=== PATIENT | male | born 1990 | race Two or more races ===

== ENCOUNTER 2020-03-25 06:40 | Day surgery (SDC) | payer OTHER ==
[~2020-03-25] VITALS: Ht 175.3 cm; Wt 73.9 kg
[2020-03-25] VITALS (8 sets, daily range): BP systolic 111–127; BP diastolic 63–74
--- NOTE | 2020-03-25 06:37 | Anethesia Preoperative Eval ---
Anesthesia Pre-op PMH/ROS General Date of Evaluation: Mar 25, 2020 Time of Evaluation: 06:36 Anesthesiologist: tracy ASA Score: ASA 3 Mallampati Score Class I : Soft palate, uvula, fauces, pillars visible Class II: Soft palate, uvula, fauces visible Class III: Soft palate, base of uvula visible Class IV: Only hard plate visible Mallampati Classification: Class II Surgeon: wes Diagnosis: dysphagia Surgical Procedure: egd Anesthesia History: none Social History: smoking Family History: no anesthesia problems Allergies: Coded Allergies: Shrimp (Verified Allergy, Intermediate, RASH, HIVES, 03/25/20) Medications: see eMAR Patient NPO?: Yes Past Medical History Pulmonary: Reports: asthma, other - bronchitis Gastrointestinal/Genitourinary: Reports: other - dysphagia Neurologic/Psychiatric: Reports: depression/anxiety Anesthesia Pre-op Phys. Exam Physician Exam Last Vital Signs Date Time Temp Pulse Resp B/P (MAP) Pulse Ox O2 Delivery O2 Flow Rate FiO2 03/25/20 07:16 Room Air 03/25/20 07:14 97.9 70 18 127/74 98 Constitutional: NAD Neurologic: CN 2-12 intact Cardiovascular: RRR Respiratory: CTA Gastrointestinal: S/NT/ND Airway Exam Mallampati Score: Class II MO: full Neck: flexible TMD: 2fb ROM: full Teeth: intact Anesthesia Pre-op A/P Labs Microbiology Date/Time Source Procedure Growth Status 03/22/20 13:00 Nasopharynx SARS-CoV-2 RdRp Gene Assay - Final Complete Risk Assessment & Plan Assessment: asa3 Plan: mac Status Change Before Surgery: No Pre-Antibiotics Drug: Sadie Ramirez MD Mar 25, 2020 06:37
[2020-03-25] MEDS ORDERED: ALBUTEROL SULF8.5 G1 INH (07:21)
[2020-03-25] MEDS ORDERED: QVAR7.3 GM INH (07:21)
[2020-03-25] MEDS ORDERED: BUSPIRONE HCL5 M1 ORAL (07:22)
--- NOTE | 2020-03-25 07:53 | Short Stay Surgery H&P ---
History of Present Illness History of Present Illness Chief Complaint see H&P attached HPI Ronald Patel is a 30 year old male who was admitted on for Dysphagia Patient History Allergies: Coded Allergies: Shrimp (Verified Allergy, Intermediate, RASH, HIVES, 03/25/20) Medication History Scheduled Albuterol Sulfate* (Albuterol Sulfate Hfa*), 2 PUFF INH NEEDED, (Reported) Beclomethasone Dipropionate 40MCG Oral Inh (Qvar 40*), 1 PUFF INH TWICE A DAY, (Reported) Buspirone Hcl* (Buspirone Hcl*), Unknown Dose ORAL TWICE A DAY, (Reported) Physical Exam Vital Signs Last Vital Signs Date Time Temp Pulse Resp B/P (MAP) Pulse Ox O2 Delivery O2 Flow Rate FiO2 03/25/20 07:16 Room Air 03/25/20 07:14 97.9 70 18 127/74 98 Plan Attestation Are the patient's medical conditions optimized for surgery? Pasquale Gomez MD Mar 25, 2020 07:53
--- NOTE | 2020-03-25 07:54 | Pre-Procedure Note/Attestation ---
Pre-Procedure Note/Attestation Complete Prior to Procedure Planned Procedure: not applicable Procedure Narrative: EGD Indications for Procedure Pre-Operative Diagnosis: Dysphagia / Globus Attestation I attest that I discussed the nature of the procedure; its benefits; risks and complications; and alternatives (and the risks and benefits of such alternatives), prior to the procedure, with the patient (or the patient's legal outbound telemarketing representative). I attest that, if there was a reasonable possibility of needing a blood tr ansfusion, the patient (or the patient's legal outbound telemarketing representative) was given the [facility] standardized written summary, pursuant to the [place] Blood Safety Act ([place] Health and Safety Code # 1645, as amended). I attest that I re-evaluated the patient just prior to the surgery and that there has been no change in the patient's H&P, except as documented below: Pasquale Gomez MD Mar 25, 2020 07:54
[2020-03-25] MEDS ORDERED: Lidocaine 1% MPF 10mg/ml 5ml ONE (08:00)
[2020-03-25] MEDS ORDERED: LR 1000ml ONE (08:00)
[2020-03-25] MEDS ORDERED: DiphenhydrAMINE 50mg/ml Inj IVP PRN (08:15)
[2020-03-25] MEDS ORDERED: Midazolam 2mg/2ml Inj IVP PRN (08:15)
[2020-03-25] MEDS ORDERED: LR 1000ml 1,000 ML IVLG SCH (08:15)
[2020-03-25] MEDS ORDERED: fentaNYL 100 mcg/2 mL IV PRN (08:15)
[2020-03-25] MEDS ORDERED: Atropine Inj 1mg/10ml Syr IVP PRN (08:15)
--- NOTE | 2020-03-25 08:48 | Endoscopy Procedure Note ---
Endoscopy Procedure Note General Indication for Procedure: dysphagia, globus Procedures Performed: EGD Operative Findings/Diagnosis: nl, rnd bx Specimen: yes Pt Tolerated Procedure Well: Yes Estimated Blood Loss: none Anesthesia Anesthesiologist: Gonzalo Escobar Anesthesia: MAC Medications Medication Given: see anesthesia record Inserted Devices Implant(s) used?: No GI Core Measures 50 yrs or older w/o bx or poly: Not Applicable 10yrs. F/U recommended: Not Applicable Pasquale Gomez MD Mar 25, 2020 08:48
--- NOTE | 2020-03-25 08:48 | Brief Operative Note ---
Immediate Post Operative Note Operative Note Chief Complaint: dysphagia Pre-op Diagnosis: Dysphagia / Globus Procedure: esophagogastroduodenoscopy bx Post-op Diagnosis: nl Specimen: yes Complications: none Fluids: given Implant(s) used?: No Pasquale Gomez MD Mar 25, 2020 08:48
--- NOTE | 2020-03-25 09:22 | Immediate Post-Op Evaluation ---
Immediate Post-Op Evalulation Immediate Post-Op Evalulation Procedure: egd w/bx Date of Evaluation: Mar 25, 2020 Time of Evaluation: 08:31 IV Fluids: 400ml lr Blood Products: none Estimated Blood Loss: negligible Blood Pressure Systolic: 113 Blood Pressure Diastolic: 63 Pulse Rate: 61 Respiratory Rate: 18 O2 Sat by Pulse Oximetry: 99 Temperature (Fahrenheit): 97.0 Pain Score (1-10): 0 Nausea: No Vomiting: No Complications 0 Patient Status: awake, reacts, patent Hydration Status: adequate Drug: Sadie Ramirez MD Mar 25, 2020 09:22
--- NOTE | 2020-03-25 09:23 | 48 Hour Post Anesthesia Eval ---
Post Anesthesia Evaluation Procedure: egd w/bx Date of Evaluation: Mar 25, 2020 Time of Evaluation: 08:33 Blood Pressure Systolic: 111 0: 68 Pulse Rate: 60 Respiratory Rate: 18 Temperature (Fahrenheit): 97.0 O2 Sat by Pulse Oximetry: 99 Airway: patent Nausea: No Vomiting: No Pain Intensity: 0 Hydration Status: adequate Cardiopulmonary Status: stable Mental Status/LOC: patient returned to baseline Post-Anesthesia Complications: none Follow-up care needed: N/A Sadie Ferrell MD Mar 25, 2020 09:23
--- NOTE | 2020-03-25 10:00 | Operative Note - Dictated ---
DATE OF OPERATION: 03/25/2020 GASTROENTEROLOGY PROCEDURE REPORT PROCEDURE: Upper gastrointestinal endoscopy with biopsy. SURGEON: Pasquale Gomez MD. ANESTHESIA: Dr. Sadie Macias. PREOPERATIVE DIAGNOSIS: Dysphagia and globus-type sensation. POSTOPERATIVE DIAGNOSIS: Normal upper endoscopy, status post random biopsies of the lower and mid esophagus. PROCEDURE IN DETAIL: Procedure, its risks, indications, alternatives, and possible complications including but not limited to bleeding, infection, perforation, , and anesthesia complications were explained to the patient and informed consent was obtained. The patient was then sedated in the left lateral decubitus position and a diagnostic upper endoscope was introduced through oropharynx and advanced to the duodenum without difficulty. The endoscope was then gradually withdrawn and mucosa examined carefully. Examination of the upper gastrointestinal mucosa did not reveal any abnormalities. This included the careful views of the entire esophagus including the cervical esophagus. Random biopsies of the lower esophagus and mid esophagus were sent to pathology for review. The patient tolerated the procedure well and left to Recovery in good condition. COMPLICATIONS: None. RECOMMENDATIONS: 1. Follow up biopsy results. 2. Outpatient followup. Pasquale Gomez M.D. DR: CORETTA JOB#: [id number] CC: Pasquale Gomez M.D.; Fax#: [phone]
== END 2020-03-25 09:25 | disposition home or self-care (01) ==
LOC: GAS 06:40
DX: R13.10 Dysphagia, unspecified (principal); Z87.891 Personal history of nicotine dependence; F32.9 Major depressive disorder, single episode, unspecified; F41.9 Anxiety disorder, unspecified; Z91.013 Allergy to seafood
CPT/HCPCS: 43239; 94003; J2704; J7120; U0002; 94150